=== PATIENT | male | born 1955 | race African-American/Black ===

== ENCOUNTER 2019-03-12 12:29 | Inpatient (IN) | payer MEDICAID, OTHER ==
[~2019-03-12] VITALS: Ht 172.7 cm; Wt 65.8 kg
[2019-03-12 12:56] LABS: HEMATOCRIT. 53.3 % (42.0-52.0); HEMOGLOBIN. 17.6 g/dL (14.0-18.0); MEAN CORPUSCULAR HEMOGLOBIN 29.8 pg (28.0-32.0); MEAN CORPUSCULAR VOLUME 90.4 fL (80.0-94.0); MEAN PLATELET VOLUME 9.8 fl (7.4-10.4); PLATELET 238 x1000/uL (130-400); RED BLOOD CELL COUNT 5.89 mill/uL (4.7-6.1); RED CELL DISTRIBUTION WIDTH 12.8 % (11.6-14.6)
[2019-03-12 12:57] LABS: BG CARBOXYHEMOGLOBIN 0.7 % (0.5-1.5); BG DEOXYHEMOGLOBIN 2.6 % (0.0-5.0); BG FRACTION INSPIRED OXYGEN 21; BG HCO3 ACT 20.6 mmol/L (22.0-26.0); BG METHEMOGLOBIN 0.3 % (0.0-1.5); BG OXYGEN SATURATION 97.4 % (92.0-98.5); BG OXYHEMOGLOBIN 96.4 % (94.0-97.0); BG PCO2 36.6 mmHg (35.0-45.0); BG PH 7.369 (7.350-7.450); BG PO2 97.9 mmHg (75.0-100.0); BG SAMPLE SITE RIGHT BRACHIAL; BG TOTAL HEMOGLOBIN 15.8 g/dL (12.0-18.0); BG VENT MODE ROOM AIR
[2019-03-12] MEDS ORDERED: PIPERACILLIN/TAZ 3.375G PREMIX 50 ML IV ONE (13:00)
[2019-03-12] MEDS ORDERED: VANCOMYCIN 1 G PREMIX 200 ML IV ONE (13:00)
[2019-03-12] MEDS ORDERED: SODIUM CHLORIDE 0.9% 1000ML BAG (SEPSIS BOLUS) IV ONE (13:00)
[2019-03-12 13:01] LABS: CHLORIDE 101 mEq/L (98-107)
[2019-03-12 13:02] LABS: INR 1.1; PROTHROMBIN TIME 11.2 sec (9.6-11.0)
[2019-03-12 13:22] LABS: PLATELET ESTIMATE NORMAL
[2019-03-12 14:32] LABS: CLARITY URINE CLEAR (CLEAR); COLOR URINE YELLOW (YELLOW); KETONES URINE 2+ (NEGATIVE); LEUKOCYTE ESTERASE URINE NEGATIVE (NEGATIVE); NITRITE URINE NEGATIVE (NEGATIVE); OCCULT BLOOD URINE 1+ (NEGATIVE); PH URINE 5.5 (4.5-8.0); PROTEIN URINE 2+ (NEGATIVE); SPECIFIC GRAVITY URINE 1.025 (1.005-1.030)
[2019-03-12] MEDS: METOPROLOL TARTRATE 5MG/5ML VIAL IV SCH ×2 (16:43→18:37)
[2019-03-12] MEDS ORDERED: INSULIN REGULAR (HUMULIN R) 300UNITS/3ML SUBCUT ONE (18:45)
[2019-03-12] MEDS ORDERED: DEXTROSE 50% WATER 50ML SYRINGE IV PRN (20:45)
[2019-03-12] MEDS ORDERED: CLONIDINE 0.1MG TABLET PO PRN (20:45)
[2019-03-12] MEDS ORDERED: NA PHOS,M-B/NA PHOS,DI-BA ENEMA 118ML PR PRN (20:45)
[2019-03-12] MEDS ORDERED: GUAIFENESIN 200MG/10ML SUGAR FREE UDC PO PRN (20:45)
[2019-03-12] MEDS ORDERED: MAGNESIUM/ALUMINUM HYDROXIDE/SIMETHICONE 30ML UDC PO PRN (20:45)
[2019-03-12] MEDS ORDERED: VANCOMYCIN 1 G PREMIX 200 ML IV SCH (20:45)
[2019-03-12] MEDS ORDERED: IPRATROPIUM/ALBUTEROL 0.5-3(2.5)MG/3ML NEB INH PRN (20:45)
[2019-03-12] MEDS ORDERED: ACETAMINOPHEN 325MG TABLET PO PRN (20:45)
[2019-03-12] MEDS ORDERED: DOCUSATE SODIUM 100MG CAPSULE PO PRN (20:45)
[2019-03-12] MEDS ORDERED: ONDANSETRON HCL 4MG/2ML INJ IV PRN (20:45)
[2019-03-12] MEDS ORDERED: INSULIN LISPRO 100 UNITS/ML SUBCUT SCH (21:00)
[2019-03-12] MEDS ORDERED: DEXT 5%/0.45% NACL 1000ML 1,000 ML IV SCH (21:45)
[2019-03-12 22:00] VITALS: BP_SYST 167; BP_SYST 175; BP_DIAS 120; BP_DIAS 95
[2019-03-12] MEDS: SODIUM CHLORIDE 0.9% INJ 3ML FLUSH IVF SCH (22:00)
[2019-03-12] MEDS: HYDROMORPHONE HCL/PF 2MG/ML CPJ IV PRN (22:59)
[2019-03-12 23:29] LABS: CREATINE KINASE MB FRACTION 6.2 ng/mL (0.5-3.6)
[2019-03-12] MEDS: HYDRALAZINE 20MG/ML VIAL IV PRN (23:37)
[2019-03-13] VITALS (10 sets, daily range): BP systolic 119–162; BP diastolic 57–115
[2019-03-13] MEDS: PIPERACILLIN/TAZ 3.375G PREMIX 50 ML IV SCH ×5 (00:01→23:51)
[2019-03-13] MEDS: BLOOD SUGAR DIAGNOSTIC STRIP TEST SCH ×4 (00:01→17:46)
[2019-03-13] MEDS: INSULIN LISPRO 100 UNITS/ML SUBCUT SCH ×4 (00:24→17:50)
[2019-03-13] MEDS: VANCOMYCIN 750 MG PREMIX 150 ML IV SCH ×3 (00:52→23:51)
[2019-03-13] MEDS: LORAZEPAM 2MG/ML CPJ IV PRN (01:54)
[2019-03-13] MEDS: SODIUM CHLORIDE 0.9% INJ 3ML FLUSH IVF SCH ×3 (05:45→23:42)
[2019-03-13] MEDS: HYDRALAZINE 20MG/ML VIAL IV PRN ×2 (06:04→15:14)
[2019-03-13] MEDS: ASPIRIN 81MG EC TABLET PO SCH (08:49)
[2019-03-13 08:50] LABS: HEMATOCRIT. 43.5 % (42.0-52.0); HEMOGLOBIN. 14.3 g/dL (14.0-18.0); MEAN CORPUSCULAR HEMOGLOBIN 29.5 pg (28.0-32.0); MEAN CORPUSCULAR VOLUME 89.5 fL (80.0-94.0); MEAN PLATELET VOLUME 9.9 fl (7.4-10.4); PLATELET 213 x1000/uL (130-400); RED BLOOD CELL COUNT 4.86 mill/uL (4.7-6.1); RED CELL DISTRIBUTION WIDTH 12.2 % (11.6-14.6)
[2019-03-13 08:53] LABS: CHLORIDE 115 mEq/L (98-107)
[2019-03-13 09:00] LABS: LDL CHOLESTEROL 59 mg/dL (5-100)
[2019-03-13] MEDS ORDERED: ENOXAPARIN 40MG/0.4ML SYR SUBCUT SCH (09:00)
[2019-03-13 09:01] LABS: CREATINE KINASE 66 IU/L (39-308); HDL CHOLESTEROL 60 mg/dL (40-59)
[2019-03-13 09:02] LABS: T4 FREE 1.16 ng/dL (0.76-1.46)
[2019-03-13 09:07] LABS: CREATINE KINASE MB FRACTION 4.5 ng/mL (0.5-3.6)
[2019-03-13] MEDS ORDERED: DEXTROSE 5% WATER 1,000 ML IV SCH (09:07)
[2019-03-13] MEDS ORDERED: METOPROLOL TARTRATE 5MG/5ML VIAL IV STA (09:07)
[2019-03-13] MEDS ORDERED: ENOXAPARIN 60MG/0.6ML SYR SUBCUT NR (10:30)
[2019-03-13] MEDS ORDERED: KCL 20MEQ/100ML PREMIX 100 ML IV SCH (11:30)
[2019-03-13] MEDS ORDERED: SODIUM BICARBONATE 4% (2.4MEQ) 5ML VIAL IV ONE (12:40)
[2019-03-13] MEDS ORDERED: LIDOCAINE HCL 1% 20ML VIAL (Pyxis) INJ ONE (12:41)
[2019-03-13] MEDS: DILTIAZEM HCL 125 MG in DEXT 5% WATER 100 ML IV SCH (14:24)
[2019-03-13] MEDS: SODIUM CHLORIDE 0.45% 1,000 ML IV SCH ×2 (14:37→20:15)
[2019-03-13 19:48] LABS: PLATELET ESTIMATE NORMAL
[2019-03-13] MEDS: ENOXAPARIN 60MG/0.6ML SYR SUBCUT SCH (21:35)
[2019-03-14] VITALS (12 sets, daily range): BP systolic 113–163; BP diastolic 53–87
[2019-03-14] MEDS: BLOOD SUGAR DIAGNOSTIC STRIP TEST SCH ×5 (00:40→21:32)
[2019-03-14] MEDS: DILTIAZEM HCL 125 MG in DEXT 5% WATER 100 ML IV SCH ×2 (00:40→12:16)
[2019-03-14] MEDS: HYDROMORPHONE HCL/PF 2MG/ML CPJ IV PRN ×2 (03:15→11:27)
[2019-03-14] MEDS: INSULIN LISPRO 100 UNITS/ML SUBCUT SCH ×5 (06:00→21:32)
[2019-03-14] MEDS: SODIUM CHLORIDE 0.45% 1,000 ML IV SCH ×2 (06:44→16:19)
[2019-03-14] MEDS: PIPERACILLIN/TAZ 3.375G PREMIX 50 ML IV SCH ×4 (06:44→23:58)
[2019-03-14] MEDS: SODIUM CHLORIDE 0.9% INJ 3ML FLUSH IVF SCH ×3 (06:45→21:32)
[2019-03-14] MEDS: ASPIRIN 81MG EC TABLET PO SCH (09:34)
[2019-03-14 09:37] LABS: BASOPHILS % 0.1 % (0.0-2.0); HEMATOCRIT. 40.2 % (42.0-52.0); LYMPHOCYTES % 7.1 % (20.0-50.0); MEAN CORPUSCULAR HEMOGLOBIN 29.8 pg (28.0-32.0); MEAN CORPUSCULAR VOLUME 90.6 fL (80.0-94.0); MEAN PLATELET VOLUME 9.6 fl (7.4-10.4); MONOCYTES % 5.3 % (2.0-8.0); NEUTROPHILS % 87.5 % (40.0-76.0); PLATELET 203 x1000/uL (130-400); RED BLOOD CELL COUNT 4.43 mill/uL (4.7-6.1); RED CELL DISTRIBUTION WIDTH 12.6 % (11.6-14.6)
[2019-03-14] MEDS: ENOXAPARIN 60MG/0.6ML SYR SUBCUT SCH ×2 (09:37→21:31)
[2019-03-14 09:38] LABS: HEMOGLOBIN. 13.2 g/dL (14.0-18.0)
[2019-03-14] MEDS: VANCOMYCIN 750 MG PREMIX 150 ML IV SCH (12:34)
[2019-03-14] MEDS: THIAMINE HCL 100MG TABLET PO SCH (12:58)
[2019-03-14] MEDS: FOLIC ACID 1MG TABLET PO SCH (12:58)
[2019-03-14] MEDS ORDERED: KCL 20MEQ/100ML PREMIX 100 ML IV SCH (13:00)
[2019-03-14] MEDS ORDERED: INSULIN LISPRO 100 UNITS/ML SUBCUT NR (15:00)
[2019-03-14] MEDS: NEBIVOLOL HCL 5 MG TABLET PO SCH (16:19)
[2019-03-14] MEDS: DILTIAZEM HCL 60MG TABLET PO SCH ×3 (16:20→23:58)
[2019-03-14 19:16] LABS: ANTI-NUCLEAR ANTIBODIES DIRECT Negative (Negative)
[2019-03-14] MEDS: HYDRALAZINE HCL 25MG TABLET PO SCH (21:32)
[2019-03-15] VITALS (13 sets, daily range): BP systolic 104–166; BP diastolic 49–87
[2019-03-15] MEDS: SODIUM CHLORIDE 0.45% 1,000 ML IV SCH ×2 (02:08→12:29)
[2019-03-15] MEDS: HYDROMORPHONE HCL/PF 2MG/ML CPJ IV PRN ×4 (02:44→21:15)
[2019-03-15] MEDS: PIPERACILLIN/TAZ 3.375G PREMIX 50 ML IV SCH ×3 (05:00→17:52)
[2019-03-15] MEDS: HYDRALAZINE HCL 25MG TABLET PO SCH ×3 (05:00→21:15)
[2019-03-15] MEDS: DILTIAZEM HCL 60MG TABLET PO SCH ×3 (05:00→17:52)
[2019-03-15] MEDS: SODIUM CHLORIDE 0.9% INJ 3ML FLUSH IVF SCH ×3 (05:00→21:14)
[2019-03-15] MEDS: HYDROCODONE/ACETAMINOPHEN 10/325MG TABLET PO PRN (05:51)
[2019-03-15 06:46] LABS: BASOPHILS % 0.1 % (0.0-2.0); EOSINOPHILS % 0.4 % (0.0-5.0); HEMATOCRIT. 36.6 % (42.0-52.0); HEMOGLOBIN. 12.2 g/dL (14.0-18.0); LYMPHOCYTES % 16.5 % (20.0-50.0); MEAN CORPUSCULAR HEMOGLOBIN 29.8 pg (28.0-32.0); MEAN CORPUSCULAR VOLUME 89.6 fL (80.0-94.0); MEAN PLATELET VOLUME 9.1 fl (7.4-10.4); MONOCYTES % 6.6 % (2.0-8.0); NEUTROPHILS % 76.4 % (40.0-76.0); PLATELET 165 x1000/uL (130-400); RED BLOOD CELL COUNT 4.09 mill/uL (4.7-6.1); RED CELL DISTRIBUTION WIDTH 12.2 % (11.6-14.6)
[2019-03-15] MEDS: BLOOD SUGAR DIAGNOSTIC STRIP TEST SCH ×4 (07:28→20:49)
[2019-03-15] MEDS: FOLIC ACID 1MG TABLET PO SCH (08:38)
[2019-03-15] MEDS: THIAMINE HCL 100MG TABLET PO SCH (08:39)
[2019-03-15] MEDS: NEBIVOLOL HCL 5 MG TABLET PO SCH (08:39)
[2019-03-15] MEDS: ENOXAPARIN 60MG/0.6ML SYR SUBCUT SCH (08:39)
[2019-03-15] MEDS: ASPIRIN 81MG EC TABLET PO SCH (08:39)
[2019-03-15] MEDS: INSULIN LISPRO 100 UNITS/ML SUBCUT SCH ×4 (08:40→21:14)
[2019-03-15] MEDS: VANCOMYCIN 750 MG PREMIX 150 ML IV SCH (08:45)
[2019-03-15] MEDS ORDERED: POTASSIUM CHLORIDE 20MEQ/PACKET PO SCH (09:30)
[2019-03-15 13:16] LABS: COMPLEMENT C3 108 mg/dL (82-167)
[2019-03-15] MEDS ORDERED: RIVAROXABAN 20 MG TABLET PO SCH (17:00)
[2019-03-16] VITALS (12 sets, daily range): BP systolic 88–166; BP diastolic 41–94
[2019-03-16] MEDS: PIPERACILLIN/TAZ 3.375G PREMIX 50 ML IV SCH ×4 (00:36→18:42)
[2019-03-16] MEDS: VANCOMYCIN 750 MG PREMIX 150 ML IV SCH ×2 (03:33→22:17)
[2019-03-16] MEDS: HYDROMORPHONE HCL/PF 2MG/ML CPJ IV PRN ×4 (03:33→22:34)
[2019-03-16] MEDS: SODIUM CHLORIDE 0.45% 1,000 ML IV SCH (03:34)
[2019-03-16] MEDS: SODIUM CHLORIDE 0.9% INJ 3ML FLUSH IVF SCH ×3 (06:21→22:19)
[2019-03-16] MEDS: DILTIAZEM HCL 60MG TABLET PO SCH ×4 (06:22→18:00)
[2019-03-16] MEDS: HYDRALAZINE HCL 25MG TABLET PO SCH ×3 (06:22→22:00)
[2019-03-16 06:55] LABS: BASOPHILS % 0.2 % (0.0-2.0); EOSINOPHILS % 0.8 % (0.0-5.0); HEMATOCRIT. 37.4 % (42.0-52.0); HEMOGLOBIN. 12.7 g/dL (14.0-18.0); LYMPHOCYTES % 24.6 % (20.0-50.0); MEAN CORPUSCULAR HEMOGLOBIN 30.5 pg (28.0-32.0); MEAN CORPUSCULAR VOLUME 90.2 fL (80.0-94.0); MEAN PLATELET VOLUME 9.1 fl (7.4-10.4); MONOCYTES % 7.2 % (2.0-8.0); NEUTROPHILS % 67.2 % (40.0-76.0); PLATELET 153 x1000/uL (130-400); RED BLOOD CELL COUNT 4.15 mill/uL (4.7-6.1); RED CELL DISTRIBUTION WIDTH 12.3 % (11.6-14.6)
[2019-03-16 06:56] LABS: PHOSPHORUS 1.2 mg/dL (2.5-4.9)
[2019-03-16] MEDS: ASPIRIN 81MG EC TABLET PO SCH (08:01)
[2019-03-16] MEDS: THIAMINE HCL 100MG TABLET PO SCH (08:01)
[2019-03-16] MEDS: BLOOD SUGAR DIAGNOSTIC STRIP TEST SCH ×4 (08:01→21:42)
[2019-03-16] MEDS: FOLIC ACID 1MG TABLET PO SCH (08:01)
[2019-03-16] MEDS: INSULIN LISPRO 100 UNITS/ML SUBCUT SCH ×4 (08:02→22:19)
[2019-03-16] MEDS ORDERED: POTASSIUM PHOS,M-BASIC-D-BASIC 20 MMOL in DEXT 5% WATER 250 ML IV SCH (11:00)
[2019-03-16] MEDS ORDERED: MAGNESIUM 2 G PREMIX 50 ML IV SCH (11:00)
[2019-03-16] MEDS: HYDROCODONE/ACETAMINOPHEN 10/325MG TABLET PO PRN ×2 (12:21→18:42)
[2019-03-16] MEDS: RIVAROXABAN 15 MG TABLET PO SCH (17:23)
[2019-03-17] VITALS (12 sets, daily range): BP systolic 83–166; BP diastolic 49–95
[2019-03-17] MEDS: PIPERACILLIN/TAZ 3.375G PREMIX 50 ML IV SCH ×5 (00:03→23:53)
[2019-03-17] MEDS: DILTIAZEM HCL 60MG TABLET PO SCH ×5 (00:03→23:55)
[2019-03-17] MEDS: DIPHENHYDRAMINE 50MG/ML VIAL IV PRN ×2 (00:32→23:53)
[2019-03-17] MEDS: HYDROMORPHONE HCL/PF 2MG/ML CPJ IV PRN ×4 (04:11→18:52)
[2019-03-17] MEDS: HYDRALAZINE HCL 25MG TABLET PO SCH ×3 (06:00→22:10)
[2019-03-17] MEDS: SODIUM CHLORIDE 0.9% INJ 3ML FLUSH IVF SCH ×3 (06:11→22:07)
[2019-03-17 06:52] LABS: BASOPHILS % 0.2 % (0.0-2.0); EOSINOPHILS % 0.7 % (0.0-5.0); HEMATOCRIT. 33.5 % (42.0-52.0); HEMOGLOBIN. 11.2 g/dL (14.0-18.0); LYMPHOCYTES % 18.5 % (20.0-50.0); MEAN CORPUSCULAR VOLUME 89.8 fL (80.0-94.0); MONOCYTES % 6.7 % (2.0-8.0); NEUTROPHILS % 73.9 % (40.0-76.0); PLATELET 146 x1000/uL (130-400); RED BLOOD CELL COUNT 3.73 mill/uL (4.7-6.1); RED CELL DISTRIBUTION WIDTH 12.4 % (11.6-14.6)
[2019-03-17] MEDS: BLOOD SUGAR DIAGNOSTIC STRIP TEST SCH ×4 (07:49→21:57)
[2019-03-17 08:02] LABS: PHOSPHORUS 1.7 mg/dL (2.5-4.9)
[2019-03-17] MEDS: INSULIN LISPRO 100 UNITS/ML SUBCUT SCH ×4 (08:19→22:12)
[2019-03-17] MEDS: FOLIC ACID 1MG TABLET PO SCH (08:19)
[2019-03-17] MEDS: THIAMINE HCL 100MG TABLET PO SCH (08:20)
[2019-03-17] MEDS: ASPIRIN 81MG EC TABLET PO SCH (08:20)
[2019-03-17] MEDS ORDERED: SODIUM PHOS,M-BASIC-D-BASIC 15 MM in DEXT 5% WATER 245 ML IV NR (10:00)
[2019-03-17] MEDS: VANCOMYCIN 750 MG PREMIX 150 ML IV SCH (15:35)
[2019-03-17] MEDS: LORAZEPAM 2MG/ML CPJ IV PRN (15:35)
[2019-03-17] MEDS: RIVAROXABAN 15 MG TABLET PO SCH (17:45)
[2019-03-18] VITALS (12 sets, daily range): BP systolic 104–159; BP diastolic 51–82
[2019-03-18] MEDS ORDERED: HYDROMORPHONE HCL/PF 2MG/ML CPJ IM PRN (02:00)
[2019-03-18] MEDS: PIPERACILLIN/TAZ 3.375G PREMIX 50 ML IV SCH ×3 (05:24→18:12)
[2019-03-18] MEDS: HYDRALAZINE HCL 25MG TABLET PO SCH ×3 (05:25→21:13)
[2019-03-18] MEDS: DILTIAZEM HCL 60MG TABLET PO SCH ×3 (05:25→17:11)
[2019-03-18] MEDS: SODIUM CHLORIDE 0.9% INJ 3ML FLUSH IVF SCH ×3 (05:26→21:13)
[2019-03-18] MEDS: HYDROMORPHONE HCL/PF 2MG/ML CPJ IV PRN ×4 (05:39→17:07)
[2019-03-18 06:14] LABS: BASOPHILS % 0.2 % (0.0-2.0); EOSINOPHILS % 0.9 % (0.0-5.0); HEMATOCRIT. 28.8 % (42.0-52.0); HEMOGLOBIN. 9.8 g/dL (14.0-18.0); LYMPHOCYTES % 17.1 % (20.0-50.0); MEAN CORPUSCULAR HEMOGLOBIN 30.4 pg (28.0-32.0); MEAN CORPUSCULAR VOLUME 89.4 fL (80.0-94.0); MEAN PLATELET VOLUME 8.9 fl (7.4-10.4); MONOCYTES % 6.2 % (2.0-8.0); NEUTROPHILS % 75.6 % (40.0-76.0); PLATELET 153 x1000/uL (130-400); RED BLOOD CELL COUNT 3.22 mill/uL (4.7-6.1); RED CELL DISTRIBUTION WIDTH 12.4 % (11.6-14.6)
[2019-03-18 07:32] LABS: PHOSPHORUS 1.6 mg/dL (2.5-4.9)
[2019-03-18] MEDS: BLOOD SUGAR DIAGNOSTIC STRIP TEST SCH ×4 (08:08→21:13)
[2019-03-18] MEDS: INSULIN LISPRO 100 UNITS/ML SUBCUT SCH ×4 (08:12→21:16)
[2019-03-18] MEDS: ASPIRIN 81MG EC TABLET PO SCH (09:33)
[2019-03-18] MEDS: VANCOMYCIN 750 MG PREMIX 150 ML IV SCH (09:34)
[2019-03-18] MEDS ORDERED: POTASSIUM PHOS,M-BASIC-D-BASIC 15 MMOL in DEXT 5% WATER 245 ML IV SCH (12:00)
[2019-03-18] MEDS ORDERED: INSULIN REGULAR (HUMULIN R) UD 100 UNITS/ML SYR SUBCUT ONE (13:00)
[2019-03-18] MEDS ORDERED: INSULIN LISPRO 100 UNITS/ML SUBCUT SCH (13:15)
[2019-03-18] MEDS: RIVAROXABAN 15 MG TABLET PO SCH (17:11)
[2019-03-18] MEDS: HYDROCODONE/ACETAMINOPHEN 10/325MG TABLET PO PRN (21:25)
[2019-03-19] VITALS (9 sets, daily range): BP systolic 117–163; BP diastolic 55–76
[2019-03-19] MEDS: PIPERACILLIN/TAZ 3.375G PREMIX 50 ML IV SCH ×4 (00:10→16:48)
[2019-03-19] MEDS: DILTIAZEM HCL 60MG TABLET PO SCH ×4 (00:10→16:48)
[2019-03-19] MEDS: HYDROMORPHONE HCL/PF 2MG/ML CPJ IV PRN ×6 (00:50→21:06)
[2019-03-19] MEDS: VANCOMYCIN 750 MG PREMIX 150 ML IV SCH ×2 (03:29→21:17)
[2019-03-19] MEDS: HYDROCODONE/ACETAMINOPHEN 10/325MG TABLET PO PRN ×3 (04:00→22:17)
[2019-03-19] MEDS: HYDRALAZINE HCL 25MG TABLET PO SCH ×3 (05:17→21:07)
[2019-03-19] MEDS: SODIUM CHLORIDE 0.9% INJ 3ML FLUSH IVF SCH ×3 (05:18→21:31)
[2019-03-19] MEDS: INSULIN LISPRO 100 UNITS/ML SUBCUT SCH ×4 (06:10→21:19)
[2019-03-19] MEDS: BLOOD SUGAR DIAGNOSTIC STRIP TEST SCH ×4 (06:10→21:00)
[2019-03-19 06:56] LABS: BASOPHILS % 0.4 % (0.0-2.0); EOSINOPHILS % 1.3 % (0.0-5.0); HEMATOCRIT. 25.2 % (42.0-52.0); HEMOGLOBIN. 8.7 g/dL (14.0-18.0); LYMPHOCYTES % 24.3 % (20.0-50.0); MEAN CORPUSCULAR VOLUME 89.6 fL (80.0-94.0); MEAN PLATELET VOLUME 8.5 fl (7.4-10.4); MONOCYTES % 8.2 % (2.0-8.0); NEUTROPHILS % 65.8 % (40.0-76.0); PLATELET 173 x1000/uL (130-400); RED BLOOD CELL COUNT 2.81 mill/uL (4.7-6.1); RED CELL DISTRIBUTION WIDTH 12.6 % (11.6-14.6)
[2019-03-19 07:27] LABS: PHOSPHORUS 1.8 mg/dL (2.5-4.9)
[2019-03-19] MEDS: ASPIRIN 81MG EC TABLET PO SCH (07:56)
[2019-03-19] MEDS ORDERED: SODIUM PHOS,M-BASIC-D-BASIC 15 MM in DEXT 5% WATER 245 ML IV SCH (10:00)
[2019-03-19] MEDS ORDERED: MAGNESIUM 2 G PREMIX 50 ML IV SCH (11:00)
[2019-03-19] MEDS: RIVAROXABAN 15 MG TABLET PO SCH (16:48)
[2019-03-19] MEDS ORDERED: INSULIN GLARGINE UD 100 UNITS/ML SYR SUBCUT NR (17:00)
[2019-03-19] MEDS: DIPHENHYDRAMINE 50MG/ML VIAL IV PRN (22:19)
[2019-03-20] VITALS (12 sets, daily range): BP systolic 99–137; BP diastolic 49–80
[2019-03-20] MEDS: HYDROMORPHONE HCL/PF 2MG/ML CPJ IV PRN ×5 (00:42→17:44)
[2019-03-20] MEDS: DILTIAZEM HCL 60MG TABLET PO SCH ×4 (00:43→18:32)
[2019-03-20] MEDS: PIPERACILLIN/TAZ 3.375G PREMIX 50 ML IV SCH ×3 (00:44→11:22)
[2019-03-20] MEDS: HYDRALAZINE HCL 25MG TABLET PO SCH ×2 (05:17→14:00)
[2019-03-20] MEDS: SODIUM CHLORIDE 0.9% INJ 3ML FLUSH IVF SCH ×2 (05:25→14:13)
[2019-03-20] MEDS: BLOOD SUGAR DIAGNOSTIC STRIP TEST SCH ×3 (07:30→17:50)
[2019-03-20 07:52] LABS: BASOPHILS % 0.4 % (0.0-2.0); EOSINOPHILS % 1.3 % (0.0-5.0); HEMATOCRIT. 28.9 % (42.0-52.0); HEMOGLOBIN. 9.8 g/dL (14.0-18.0); LYMPHOCYTES % 25.7 % (20.0-50.0); MEAN CORPUSCULAR HEMOGLOBIN 30.8 pg (28.0-32.0); MEAN CORPUSCULAR VOLUME 90.7 fL (80.0-94.0); MEAN PLATELET VOLUME 8.3 fl (7.4-10.4); MONOCYTES % 7.5 % (2.0-8.0); NEUTROPHILS % 65.1 % (40.0-76.0); PLATELET 212 x1000/uL (130-400); RED BLOOD CELL COUNT 3.19 mill/uL (4.7-6.1); RED CELL DISTRIBUTION WIDTH 12.6 % (11.6-14.6)
[2019-03-20] MEDS: INSULIN LISPRO 100 UNITS/ML SUBCUT SCH ×3 (08:00→18:11)
[2019-03-20] MEDS: ASPIRIN 81MG EC TABLET PO SCH (09:33)
[2019-03-20 09:36] LABS: PHOSPHORUS 2.3 mg/dL (2.5-4.9)
[2019-03-20] MEDS ORDERED: INSULIN GLARGINE UD 100 UNITS/ML SYR SUBCUT SCH (10:00)
[2019-03-20] MEDS: VANCOMYCIN 750 MG PREMIX 150 ML IV SCH (15:39)
[2019-03-20] MEDS: RIVAROXABAN 15 MG TABLET PO SCH (17:45)
== END 2019-03-20 21:21 | DRG 720 ==
LOC: ER 12:29 → 5EST 18:39 → EDBEDREQTM 18:43 → EDBEDREQ 18:43 → ENRESERV 19:50 → 5EST 21:40
PROVIDERS: ADMIT Internal Medicine; ATTEND Internal Medicine
PROC: 05HY33Z Insertion of Infusion Device into Upper Vein, Percutaneous Approach (ICD-10-PCS; 2019-03-12)
PROC: B54MZZA Ultrasonography of Right Upper Extremity Veins, Guidance (ICD-10-PCS; 2019-03-12)
PROC: 02HV33Z Insertion of Infusion Device into Superior Vena Cava, Percutaneous Approach (ICD-10-PCS; principal; 2019-03-13)
PROC: B548ZZA Ultrasonography of Superior Vena Cava, Guidance (ICD-10-PCS; 2019-03-13)
DX: A41.9 Sepsis, unspecified organism (principal); N17.0 Acute kidney failure with tubular necrosis; G93.40 Encephalopathy, unspecified; E87.2 Acidosis; I82.412 Acute embolism and thrombosis of left femoral vein; E83.39 Other disorders of phosphorus metabolism; E87.0 Hyperosmolality and hypernatremia; E86.0 Dehydration; C61 Malignant neoplasm of prostate; I25.10 Atherosclerotic heart disease of native coronary artery without angina pectoris; E87.6 Hypokalemia; E11.9 Type 2 diabetes mellitus without complications; I48.92 Unspecified atrial flutter; I11.9 Hypertensive heart disease without heart failure; I69.354 Hemiplegia and hemiparesis following cerebral infarction affecting left non-dominant side; Z85.46 Personal history of malignant neoplasm of prostate
CPT/HCPCS: 36415; 36573; 36600; 71045; 76770; 76937; 80048; 80061; 80202; 82140; 82375; 82550; 82553; 82805; 82962; 83605; 83735; 83880; 84100; 84153; 84439; 84443; 84481; 84484; 86038; 86160; 92610; 93005; 93306; 93970; 96372; 96374; 96375; 97162; 99291; A6261; C1725; C1893; J0360; J1170; J1200; J1650; J1815; J2060; J2405; J2543; J3370; J3475; J3480; J3490; J7030; J7040; J7050; J7060; J7070; G0103

== ENCOUNTER 2019-04-12 06:52 | Emergency (ER) | payer MEDICAID ==
[~2019-04-12] VITALS: Ht 180.3 cm; Wt 73.0 kg
[2019-04-12] MEDS ORDERED: IBUPROFEN 600MG TABLET PO STA (08:53)
[2019-04-12] MEDS ORDERED: SODIUM CHLORIDE 0.9% 1,000 ML IV ONE (08:53)
[2019-04-12 09:06] LABS: CLARITY URINE CLEAR (CLEAR); COLOR URINE YELLOW (YELLOW); KETONES URINE NEGATIVE (NEGATIVE); LEUKOCYTE ESTERASE URINE NEGATIVE (NEGATIVE); NITRITE URINE NEGATIVE (NEGATIVE); OCCULT BLOOD URINE NEGATIVE (NEGATIVE); PROTEIN URINE 2+ (NEGATIVE); SPECIFIC GRAVITY URINE 1.009 (1.005-1.030); UROBILINOGEN URINE 0.2 E.U./dL (0.2-1.0)
[2019-04-12 09:15] LABS: BASOPHILS % 0.5 % (0.0-2.0); EOSINOPHILS % 0.1 % (0.0-5.0); HEMATOCRIT. 34.3 % (42.0-52.0); HEMOGLOBIN. 11.4 g/dL (14.0-18.0); LYMPHOCYTES % 14.5 % (20.0-50.0); MEAN CORPUSCULAR HEMOGLOBIN 32.7 pg (28.0-32.0); MEAN CORPUSCULAR VOLUME 98.1 fL (80.0-94.0); MEAN PLATELET VOLUME 7.3 fl (7.4-10.4); MONOCYTES % 3.5 % (2.0-8.0); NEUTROPHILS % 81.4 % (40.0-76.0); PLATELET 414 x1000/uL (130-400); RED CELL DISTRIBUTION WIDTH 15.2 % (11.6-14.6)
[2019-04-12] MEDS ORDERED: AMLODIPINE 5MG TABLET PO ONE (09:15)
[2019-04-12 09:30] LABS: CHLORIDE 104 mEq/L (98-107)
[2019-04-12 11:00] VITALS: BP 187/108
[2019-04-12] MEDS ORDERED: MORPHINE SULFATE 4 MG/ML CPJ (NOT FOR IM USE) IV ONE (11:00)
== END 2019-04-12 12:48 | disposition home or self-care (01) ==
LOC: ER 06:52
DX: C61 Malignant neoplasm of prostate (principal); R73.9 Hyperglycemia, unspecified; R03.0 Elevated blood-pressure reading, without diagnosis of hypertension
CPT/HCPCS: 36415; 80053; 81003; 85025; 96374; 99283; J2270; J7030

== ENCOUNTER 2019-09-15 18:11 | Inpatient (IN) | payer MEDICARE, MEDICAID ==
[~2019-09-15] VITALS: Ht 167.6 cm; Wt 66.8 kg
[2019-09-15] MEDS ORDERED: HYDROCORTISONE SOD SUCCINATE 100 MG/2 ML VIAL IV ONE (18:45)
[2019-09-15] MEDS ORDERED: VANCOMYCIN 1 G PREMIX 200 ML IV ONE (18:45)
[2019-09-15] MEDS ORDERED: SODIUM CHLORIDE 0.9% 1000ML BAG (SEPSIS BOLUS) IV ONE (18:45)
[2019-09-15] MEDS ORDERED: PIPERACILLIN/TAZ 3.375G PREMIX 50 ML IV ONE (18:45)
[2019-09-15 19:49] LABS: CHLORIDE 115 mEq/L (98-107)
[2019-09-15 19:53] LABS: BASOPHILS % 0.1 % (0.0-2.0); HEMATOCRIT. 51.2 % (42.0-52.0); HEMOGLOBIN. 15.9 g/dL (14.0-18.0); INR 1.3; LYMPHOCYTES % 7.1 % (20.0-50.0); MEAN CORPUSCULAR HEMOGLOBIN 27.3 pg (28.0-32.0); MEAN CORPUSCULAR VOLUME 87.8 fL (80.0-94.0); MEAN PLATELET VOLUME 10.1 fl (7.4-10.4); MONOCYTES % 4.6 % (2.0-8.0); NEUTROPHILS % 88.2 % (40.0-76.0); PLATELET 290 x1000/uL (130-400); PROTHROMBIN TIME 13.4 sec (9.6-11.0); RED BLOOD CELL COUNT 5.83 mill/uL (4.7-6.1)
[2019-09-15 19:58] LABS: ETHANOL BLOOD < 10 mg/dL
[2019-09-15 19:59] LABS: CREATINE KINASE 187 IU/L (39-308)
[2019-09-15 20:04] LABS: CREATINE KINASE MB FRACTION 6.4 ng/mL (0.5-3.6)
[2019-09-15 20:04] LABS: CLARITY URINE CLEAR (CLEAR); COLOR URINE YELLOW (YELLOW); KETONES URINE TRACE (NEGATIVE); LEUKOCYTE ESTERASE URINE NEGATIVE (NEGATIVE); NITRITE URINE NEGATIVE (NEGATIVE); OCCULT BLOOD URINE 1+ (NEGATIVE); PROTEIN URINE 2+ (NEGATIVE); SPECIFIC GRAVITY URINE 1.021 (1.005-1.030); UROBILINOGEN URINE 0.2 E.U./dL (0.2-1.0)
[2019-09-15 20:24] LABS: *BARBITURATES SCREEN URINE NEGATIVE (NEGATIVE); *BENZODIAZEPINES SCREEN URINE NEGATIVE (NEGATIVE); *COCAINE SCREEN URINE NEGATIVE (NEGATIVE)
[2019-09-15 20:25] LABS: *AMPHETAMINES SCREEN URINE NEGATIVE (NEGATIVE); CANNABINOID URINE SCREEN NEGATIVE (NEGATIVE); METHADONE URINE SCREEN NEGATIVE (NEGATIVE); OPIATES URINE SCREEN PRESUMTIVE POSITIVE (NEGATIVE); PHENCYCLIDINE URINE SCREEN NEGATIVE (NEGATIVE)
[2019-09-15] MEDS ORDERED: PIPERACILLIN/TAZ 3.375G PREMIX 50 ML IV SCH (22:00)
[2019-09-15] MEDS ORDERED: CLONIDINE 0.1MG TABLET PO PRN (22:00)
[2019-09-16] VITALS (9 sets, daily range): BP systolic 110–142; BP diastolic 64–94
[2019-09-16] MEDS ORDERED: INSULIN REGULAR (HUMULIN R) UD 100 UNITS/ML SYR SUBCUT ONE (01:00)
[2019-09-16] MEDS ORDERED: INSULIN REGULAR (HUMULIN R) 300UNITS/3ML SUBCUT NR (01:15)
[2019-09-16] MEDS: INSULIN LISPRO (HIGH DOSE) 100 UNITS/ML SUBCUT SCH ×5 (04:06→21:00)
[2019-09-16] MEDS: BLOOD SUGAR DIAGNOSTIC STRIP TEST SCH ×4 (08:13→21:00)
[2019-09-16] MEDS: ENOXAPARIN 40MG/0.4ML SYR SUBCUT SCH (09:04)
[2019-09-16] MEDS: PIPERACILLIN/TAZOBACTAM 3.375 G in DEXT 5% WATER 100 ML IV SCH ×3 (09:05→17:22)
[2019-09-16] MEDS: INSULIN LISPRO 100 UNITS/ML SUBCUT SCH ×3 (09:06→17:25)
[2019-09-16] MEDS: DEXTROSE 5% WATER 1,000 ML IV SCH ×2 (09:09→21:51)
[2019-09-16] MEDS: MORPHINE SULFATE 2 MG/ML CPJ (NOT FOR IM USE) IV PRN (09:10)
[2019-09-16] MEDS ORDERED: LABETALOL 5MG/ML SYR 20 MG/4 ML SYRINGE IV SCH (11:00)
[2019-09-16 11:28] LABS: HEMATOCRIT. 43.1 % (42.0-52.0); HEMOGLOBIN. 13.6 g/dL (14.0-18.0); MEAN CORPUSCULAR HEMOGLOBIN 26.9 pg (28.0-32.0); MEAN CORPUSCULAR VOLUME 85.6 fL (80.0-94.0); MEAN PLATELET VOLUME 9.6 fl (7.4-10.4); PLATELET 201 x1000/uL (130-400); RED BLOOD CELL COUNT 5.04 mill/uL (4.7-6.1); RED CELL DISTRIBUTION WIDTH 15.5 % (11.6-14.6)
[2019-09-16 11:32] LABS: CHLORIDE 127 mEq/L (98-107)
[2019-09-16] MEDS ORDERED: VANCOMYCIN 1 G PREMIX 200 ML IV SCH (12:00)
[2019-09-16 12:22] LABS: PLATELET ESTIMATE NORMAL
[2019-09-16 13:07] LABS: BASOPHILS % 0.3 % (0.0-2.0); HEMATOCRIT. 42.3 % (42.0-52.0); HEMOGLOBIN. 13.5 g/dL (14.0-18.0); LYMPHOCYTES % 7.8 % (20.0-50.0); MEAN CORPUSCULAR VOLUME 84.4 fL (80.0-94.0); MEAN PLATELET VOLUME 9.7 fl (7.4-10.4); MONOCYTES % 5.6 % (2.0-8.0); NEUTROPHILS % 86.3 % (40.0-76.0); PLATELET 194 x1000/uL (130-400); RED BLOOD CELL COUNT 5.01 mill/uL (4.7-6.1); RED CELL DISTRIBUTION WIDTH 15.5 % (11.6-14.6)
[2019-09-17] VITALS (12 sets, daily range): BP systolic 111–160; BP diastolic 63–104
[2019-09-17] MEDS: PIPERACILLIN/TAZOBACTAM 3.375 G in DEXT 5% WATER 100 ML IV SCH ×4 (00:32→18:30)
[2019-09-17] MEDS: LORAZEPAM 2MG/ML CPJ IV PRN ×2 (02:04→13:20)
[2019-09-17] MEDS: DEXTROSE 5% WATER 1,000 ML IV SCH ×2 (06:20→22:48)
[2019-09-17] MEDS: BLOOD SUGAR DIAGNOSTIC STRIP TEST SCH ×4 (07:42→21:14)
[2019-09-17] MEDS: ENOXAPARIN 40MG/0.4ML SYR SUBCUT SCH (09:00)
[2019-09-17] MEDS: INSULIN LISPRO 100 UNITS/ML SUBCUT SCH ×2 (09:24→18:30)
[2019-09-17] MEDS: INSULIN LISPRO (HIGH DOSE) 100 UNITS/ML SUBCUT SCH ×4 (09:25→21:00)
[2019-09-17] MEDS: MORPHINE SULFATE 2 MG/ML CPJ (NOT FOR IM USE) IV PRN (10:53)
[2019-09-17] MEDS ORDERED: DILTIAZEM HCL 5MG/ML 5ML VIAL IV PRN (11:30)
[2019-09-17] MEDS ORDERED: DILTIAZEM HCL 5MG/ML 5ML VIAL IV SCH (12:00)
[2019-09-17] MEDS: VANCOMYCIN 1 G PREMIX 200 ML IV SCH (13:55)
[2019-09-17] MEDS ORDERED: POTASSIUM CHLORIDE INJ 40 MEQ in DEXT 5% WATER 250 ML IV SCH (14:00)
[2019-09-17] MEDS: DEXTROSE 50% WATER 50ML SYRINGE IV PRN (21:15)
[2019-09-18] VITALS (12 sets, daily range): BP systolic 117–146; BP diastolic 71–104
[2019-09-18] MEDS: PIPERACILLIN/TAZOBACTAM 3.375 G in DEXT 5% WATER 100 ML IV SCH ×4 (00:50→17:39)
[2019-09-18] MEDS: MORPHINE SULFATE 2 MG/ML CPJ (NOT FOR IM USE) IV PRN (00:50)
[2019-09-18] MEDS: BLOOD SUGAR DIAGNOSTIC STRIP TEST SCH ×4 (07:30→21:43)
[2019-09-18] MEDS: INSULIN LISPRO 100 UNITS/ML SUBCUT SCH ×3 (07:30→17:28)
[2019-09-18 07:33] LABS: BASOPHILS % 0.1 % (0.0-2.0); EOSINOPHILS % 0.4 % (0.0-5.0); HEMATOCRIT. 45.6 % (42.0-52.0); HEMOGLOBIN. 14.2 g/dL (14.0-18.0); LYMPHOCYTES % 10.7 % (20.0-50.0); MEAN CORPUSCULAR HEMOGLOBIN 27.1 pg (28.0-32.0); MEAN PLATELET VOLUME 9.5 fl (7.4-10.4); NEUTROPHILS % 84.8 % (40.0-76.0); PLATELET 122 x1000/uL (130-400); RED BLOOD CELL COUNT 5.24 mill/uL (4.7-6.1); RED CELL DISTRIBUTION WIDTH 15.5 % (11.6-14.6)
[2019-09-18 07:41] LABS: CHLORIDE 118 mEq/L (98-107)
[2019-09-18] MEDS: INSULIN LISPRO (HIGH DOSE) 100 UNITS/ML SUBCUT SCH ×4 (08:00→22:39)
[2019-09-18] MEDS: THIAMINE HCL 100MG TABLET PO SCH (09:00)
[2019-09-18] MEDS: ENOXAPARIN 40MG/0.4ML SYR SUBCUT SCH (10:53)
[2019-09-18] MEDS: DEXTROSE 5% WATER 1,000 ML IV SCH ×3 (11:51→23:02)
[2019-09-18] MEDS: VANCOMYCIN 1 G PREMIX 200 ML IV SCH (12:04)
[2019-09-18] MEDS: ACETAMINOPHEN 325MG TABLET PO PRN (17:40)
[2019-09-19] VITALS (12 sets, daily range): BP systolic 92–164; BP diastolic 57–88
[2019-09-19] MEDS: PIPERACILLIN/TAZOBACTAM 3.375 G in DEXT 5% WATER 100 ML IV SCH ×5 (06:00→17:38)
[2019-09-19] MEDS: DEXTROSE 5% WATER 1,000 ML IV SCH (07:02)
[2019-09-19 07:05] LABS: HEPATITIS B SURFACE ANTIGEN NEGATIVE
[2019-09-19] MEDS: INSULIN LISPRO 100 UNITS/ML SUBCUT SCH ×3 (07:30→17:43)
[2019-09-19 07:33] LABS: HEPATITIS A AB IGM NEGATIVE (NEGATIVE)
[2019-09-19] MEDS: INSULIN LISPRO (HIGH DOSE) 100 UNITS/ML SUBCUT SCH ×4 (08:00→22:25)
[2019-09-19] MEDS: ENOXAPARIN 40MG/0.4ML SYR SUBCUT SCH (08:24)
[2019-09-19] MEDS: THIAMINE HCL 100MG TABLET PO SCH (08:24)
[2019-09-19] MEDS: BLOOD SUGAR DIAGNOSTIC STRIP TEST SCH ×4 (08:24→21:00)
[2019-09-19] MEDS ORDERED: POTASSIUM CHLORIDE 20MEQ TABLET SR PO ONE (09:15)
[2019-09-19] MEDS: VANCOMYCIN 1 G PREMIX 200 ML IV SCH (12:57)
[2019-09-20] VITALS (12 sets, daily range): BP systolic 102–156; BP diastolic 59–96
[2019-09-20] MEDS: DEXTROSE 5% WATER 1,000 ML IV SCH ×3 (02:26→23:56)
[2019-09-20] MEDS: PIPERACILLIN/TAZOBACTAM 3.375 G in DEXT 5% WATER 100 ML IV SCH ×6 (06:00→23:55)
[2019-09-20] MEDS ORDERED: SODIUM BICARBONATE 4% (2.4MEQ) 5ML VIAL IV ONE (07:36)
[2019-09-20] MEDS ORDERED: LIDOCAINE HCL 1% 20ML VIAL (Pyxis) INJ ONE (07:37)
[2019-09-20 08:03] LABS: CHLORIDE 121 mEq/L (98-107)
[2019-09-20] MEDS: BLOOD SUGAR DIAGNOSTIC STRIP TEST SCH ×4 (08:14→21:26)
[2019-09-20] MEDS: INSULIN LISPRO (HIGH DOSE) 100 UNITS/ML SUBCUT SCH ×4 (09:23→21:00)
[2019-09-20] MEDS: INSULIN LISPRO 100 UNITS/ML SUBCUT SCH ×3 (09:23→17:30)
[2019-09-20] MEDS: ENOXAPARIN 40MG/0.4ML SYR SUBCUT SCH (09:24)
[2019-09-20] MEDS: THIAMINE HCL 100MG TABLET PO SCH (09:24)
[2019-09-20] MEDS: VANCOMYCIN 1 G PREMIX 200 ML IV SCH (12:34)
[2019-09-20] MEDS: DEXTROSE 50% WATER 50ML SYRINGE IV PRN (18:43)
[2019-09-20] MEDS: ACETAMINOPHEN 325MG TABLET PO PRN (23:55)
[2019-09-21] VITALS (12 sets, daily range): BP systolic 92–143; BP diastolic 49–117
[2019-09-21] MEDS: PIPERACILLIN/TAZOBACTAM 3.375 G in DEXT 5% WATER 100 ML IV SCH ×4 (05:47→23:59)
[2019-09-21] MEDS: VANCOMYCIN 750 MG PREMIX 150 ML IV SCH ×2 (05:48→21:35)
[2019-09-21] MEDS: INSULIN LISPRO 100 UNITS/ML SUBCUT SCH ×3 (07:30→17:30)
[2019-09-21] MEDS: INSULIN LISPRO (HIGH DOSE) 100 UNITS/ML SUBCUT SCH ×4 (08:00→21:36)
[2019-09-21] MEDS: BLOOD SUGAR DIAGNOSTIC STRIP TEST SCH ×4 (08:25→21:36)
[2019-09-21] MEDS: THIAMINE HCL 100MG TABLET PO SCH (08:37)
[2019-09-21] MEDS: DEXTROSE 5% WATER 1,000 ML IV SCH ×2 (08:37→17:49)
[2019-09-21] MEDS: ENOXAPARIN 40MG/0.4ML SYR SUBCUT SCH (08:38)
[2019-09-21] MEDS ORDERED: MORPHINE SULFATE 2 MG/ML CPJ (NOT FOR IM USE) IV PRN (11:30)
[2019-09-21] MEDS: MORPHINE SULFATE 2 MG/ML CPJ (NOT FOR IM USE) IV PRN ×3 (14:55→21:37)
[2019-09-22] VITALS (12 sets, daily range): BP systolic 100–138; BP diastolic 57–83
[2019-09-22] MEDS: MORPHINE SULFATE 2 MG/ML CPJ (NOT FOR IM USE) IV PRN ×6 (04:03→23:44)
[2019-09-22] MEDS: DEXTROSE 5% WATER 1,000 ML IV SCH ×2 (04:04→12:42)
[2019-09-22] MEDS: PIPERACILLIN/TAZOBACTAM 3.375 G in DEXT 5% WATER 100 ML IV SCH ×4 (06:02→23:44)
[2019-09-22] MEDS: THIAMINE HCL 100MG TABLET PO SCH (08:02)
[2019-09-22] MEDS: ENOXAPARIN 40MG/0.4ML SYR SUBCUT SCH (08:02)
[2019-09-22] MEDS: INSULIN LISPRO 100 UNITS/ML SUBCUT SCH ×3 (08:03→17:16)
[2019-09-22] MEDS: BLOOD SUGAR DIAGNOSTIC STRIP TEST SCH ×4 (08:04→20:09)
[2019-09-22] MEDS: INSULIN LISPRO (HIGH DOSE) 100 UNITS/ML SUBCUT SCH ×4 (08:04→20:26)
[2019-09-22] MEDS: VANCOMYCIN 750 MG PREMIX 150 ML IV SCH (13:59)
[2019-09-23] VITALS (12 sets, daily range): BP systolic 96–129; BP diastolic 58–74
[2019-09-23] MEDS: DEXTROSE 5% WATER 1,000 ML IV SCH ×3 (02:05→22:11)
[2019-09-23] MEDS: MORPHINE SULFATE 2 MG/ML CPJ (NOT FOR IM USE) IV PRN ×7 (02:57→22:22)
[2019-09-23] MEDS: VANCOMYCIN 750 MG PREMIX 150 ML IV SCH (04:46)
[2019-09-23] MEDS: BLOOD SUGAR DIAGNOSTIC STRIP TEST SCH ×4 (08:20→21:00)
[2019-09-23] MEDS: INSULIN LISPRO (HIGH DOSE) 100 UNITS/ML SUBCUT SCH ×4 (08:42→21:00)
[2019-09-23] MEDS: INSULIN LISPRO 100 UNITS/ML SUBCUT SCH ×3 (08:42→18:24)
[2019-09-23] MEDS: THIAMINE HCL 100MG TABLET PO SCH (08:43)
[2019-09-23] MEDS: ENOXAPARIN 40MG/0.4ML SYR SUBCUT SCH (08:53)
[2019-09-23] MEDS: PIPERACILLIN/TAZOBACTAM 3.375 G in DEXT 5% WATER 100 ML IV SCH ×2 (12:40→17:33)
[2019-09-23] MEDS ORDERED: VANCOMYCIN 750 MG PREMIX 150 ML IV SCH (21:00)
[2019-09-24] VITALS (13 sets, daily range): BP systolic 88–126; BP diastolic 47–79
[2019-09-24] MEDS: ONDANSETRON HCL 4MG/2ML INJ IV PRN (01:03)
[2019-09-24] MEDS: MORPHINE SULFATE 2 MG/ML CPJ (NOT FOR IM USE) IV PRN ×7 (01:41→20:35)
[2019-09-24] MEDS: DEXTROSE 5% WATER 1,000 ML IV SCH ×2 (06:15→15:53)
[2019-09-24] MEDS: INSULIN LISPRO 100 UNITS/ML SUBCUT SCH ×3 (07:30→18:18)
[2019-09-24] MEDS: BLOOD SUGAR DIAGNOSTIC STRIP TEST SCH ×4 (07:53→20:35)
[2019-09-24] MEDS: ENOXAPARIN 40MG/0.4ML SYR SUBCUT SCH (07:58)
[2019-09-24] MEDS: THIAMINE HCL 100MG TABLET PO SCH (07:58)
[2019-09-24] MEDS: INSULIN LISPRO (HIGH DOSE) 100 UNITS/ML SUBCUT SCH ×4 (08:00→20:35)
[2019-09-24] MEDS: SUCRALFATE 1 G/10 ML UDC PO SCH ×3 (13:04→20:35)
[2019-09-25] VITALS (12 sets, daily range): BP systolic 101–136; BP diastolic 43–81
[2019-09-25] MEDS: MORPHINE SULFATE 2 MG/ML CPJ (NOT FOR IM USE) IV PRN ×8 (00:10→23:12)
[2019-09-25] MEDS: DEXTROSE 5% WATER 1,000 ML IV SCH ×2 (01:50→13:32)
[2019-09-25 06:25] LABS: HEMOGLOBIN 10.5 g/dL (14.0-18.0); MEAN CORPUSCULAR HEMOGLOBIN 28.1 pg (28.0-32.0); MEAN CORPUSCULAR VOLUME 85.5 fL (80.0-94.0); PLATELET 236 x1000/uL (130-400); RED BLOOD CELL COUNT 3.74 mill/uL (4.7-6.1); RED CELL DISTRIBUTION WIDTH 15.2 % (11.6-14.6)
[2019-09-25 06:47] LABS: CHLORIDE 91 mEq/L (98-107)
[2019-09-25] MEDS: SUCRALFATE 1 G/10 ML UDC PO SCH ×4 (08:54→20:05)
[2019-09-25] MEDS: THIAMINE HCL 100MG TABLET PO SCH (08:54)
[2019-09-25] MEDS: BLOOD SUGAR DIAGNOSTIC STRIP TEST SCH ×4 (08:54→20:06)
[2019-09-25] MEDS: ENOXAPARIN 40MG/0.4ML SYR SUBCUT SCH (08:55)
[2019-09-25] MEDS: MULTIVITAMINS,THER W-MINERALS TABLET PO SCH (08:55)
[2019-09-25] MEDS: INSULIN LISPRO 100 UNITS/ML SUBCUT SCH ×3 (09:17→17:30)
[2019-09-25] MEDS: INSULIN LISPRO (HIGH DOSE) 100 UNITS/ML SUBCUT SCH ×4 (09:18→20:09)
[2019-09-25] MEDS: ONDANSETRON HCL 4MG/2ML INJ IV PRN (20:37)
[2019-09-26] VITALS (11 sets, daily range): BP systolic 115–140; BP diastolic 63–89
[2019-09-26] MEDS: MORPHINE SULFATE 2 MG/ML CPJ (NOT FOR IM USE) IV PRN ×3 (02:19→09:17)
[2019-09-26] MEDS: DEXTROSE 5% WATER 1,000 ML IV SCH (02:26)
[2019-09-26] MEDS: BLOOD SUGAR DIAGNOSTIC STRIP TEST SCH ×3 (06:33→17:33)
[2019-09-26] MEDS: ONDANSETRON HCL 4MG/2ML INJ IV PRN (06:53)
[2019-09-26 07:14] LABS: HEMATOCRIT 37.3 % (42.0-52.0); HEMOGLOBIN 12.3 g/dL (14.0-18.0); MEAN CORPUSCULAR HEMOGLOBIN 28.2 pg (28.0-32.0); MEAN CORPUSCULAR VOLUME 85.4 fL (80.0-94.0); PLATELET 259 x1000/uL (130-400); RED BLOOD CELL COUNT 4.37 mill/uL (4.7-6.1); RED CELL DISTRIBUTION WIDTH 15.2 % (11.6-14.6)
[2019-09-26 07:52] LABS: CHLORIDE 102 mEq/L (98-107)
[2019-09-26] MEDS: SUCRALFATE 1 G/10 ML UDC PO SCH ×3 (09:12→17:53)
[2019-09-26] MEDS: MULTIVITAMINS,THER W-MINERALS TABLET PO SCH (09:12)
[2019-09-26] MEDS: THIAMINE HCL 100MG TABLET PO SCH (09:12)
[2019-09-26] MEDS: ENOXAPARIN 40MG/0.4ML SYR SUBCUT SCH (09:15)
[2019-09-26] MEDS: INSULIN LISPRO 100 UNITS/ML SUBCUT SCH ×3 (12:50→17:54)
[2019-09-26] MEDS: INSULIN LISPRO (HIGH DOSE) 100 UNITS/ML SUBCUT SCH ×3 (12:52→17:56)
[2019-09-26] MEDS ORDERED: MORPHINE SULFATE 2 MG/ML CPJ (NOT FOR IM USE) IV PRN (13:00)
[2019-09-26] MEDS ORDERED: HYDROCODONE/ACETAMINOPHEN 10/325MG TABLET PO PRN (13:00)
[2019-09-26] MEDS ORDERED: LACTULOSE 20G/30ML UDC PO PRN (17:50)
[2019-09-27] MEDS ORDERED: DOCUSATE SODIUM 100MG CAPSULE PO SCH (09:00)
== END 2019-09-26 19:10 | DRG 720 ==
LOC: ER 18:11 → 5EST 21:12 → EDBEDREQTM 21:16 → EDBEDREQ 21:16 → ENRESERV 09-16 00:05
PROVIDERS: ADMIT Hospitalist; ATTEND Hospitalist
PROC: 02HV33Z Insertion of Infusion Device into Superior Vena Cava, Percutaneous Approach (ICD-10-PCS; principal; 2019-09-20)
PROC: B548ZZA Ultrasonography of Superior Vena Cava, Guidance (ICD-10-PCS; 2019-09-20)
DX: A41.9 Sepsis, unspecified organism (principal); E43 Unspecified severe protein-calorie malnutrition; R65.21 Severe sepsis with septic shock; G93.41 Metabolic encephalopathy; L89.150 Pressure ulcer of sacral region, unstageable; L89.210 Pressure ulcer of right hip, unstageable; L89.310 Pressure ulcer of right buttock, unstageable; E87.0 Hyperosmolality and hypernatremia; R18.8 Other ascites; C61 Malignant neoplasm of prostate; N17.9 Acute kidney failure, unspecified; N39.0 Urinary tract infection, site not specified; E87.1 Hypo-osmolality and hyponatremia; E11.65 Type 2 diabetes mellitus with hyperglycemia; B19.20 Unspecified viral hepatitis C without hepatic coma; I10 Essential (primary) hypertension; I25.10 Atherosclerotic heart disease of native coronary artery without angina pectoris; K80.20 Calculus of gallbladder without cholecystitis without obstruction; N40.0 Benign prostatic hyperplasia without lower urinary tract symptoms; T68.XXXA Hypothermia, initial encounter; R00.0 Tachycardia, unspecified; Z21 Asymptomatic human immunodeficiency virus [HIV] infection status; I69.354 Hemiplegia and hemiparesis following cerebral infarction affecting left non-dominant side; Z87.891 Personal history of nicotine dependence; Z68.23 Body mass index [BMI] 23.0-23.9, adult; Z79.899 Other long term (current) drug therapy; Z85.07 Personal history of malignant neoplasm of pancreas
CPT/HCPCS: 36415; 71045; 76700; 76937; 80048; 80053; 80076; 80202; 80305; 80320; 81003; 82270; 82550; 82553; 82962; 83605; 83735; 83880; 84134; 84145; 84443; 84484; 85025; 85027; 86705; 86709; 86803; 87340; 92610; 93005; 93970; 99291; A6261; C1725; C1769; C1893; J1650; J1720; J1815; J2060; J2270; J2405; J2543; J3370; J3480; J3490; J7030; J7042; J7060; J7070; G0480